=== PATIENT | male | born 1955 | race Caucasian/White ===

== ENCOUNTER 2016-07-22 05:17 | Emergency (ER) | payer BC ==
[2016-07-22] MEDS ORDERED: NS 0.9% 1000 ML* 2,000 ML IV ONE (05:54)
[2016-07-22] MEDS ORDERED: Diphenoxylat/Atrop 2.5-0.025M* 1 TAB PO ONE (05:57)
[2016-07-22 06:23] LABS: Hematocrit 51 % (42-52); Hemoglobin 17.1 g/dl (14.0-18.0); Mean Corpuscular HGB Conc 34 g/dl (31-36); Mean Corpuscular Hemoglobin 33 pg (27-31); Mean Corpuscular Volume 97 fL (80-94); Mean Platelet Volume 7 um3 (7.4-10.4); Red Blood Count 5.21 10^6/ul (4.0-5.4); Red Cell Distribution Width 13 % (10.5-15); White Blood Count 9.1 10^3/ul (3.5-10.8)
[2016-07-22 06:52] LABS: Albumin 4.1 g/dL (3.2-5.2); Calcium 8.9 mg/dL (8.6-10.3); EGFR Non-African American 51.4 (>60); Globulin 3.5 g/dL (2-4); Potassium 3.6 mmol/L (3.5-5.0); Total Protein 7.6 g/dL (6.4-8.9)
[2016-07-22 06:54] LABS: Troponin I 0.01 ng/mL (<0.04)
--- NOTE | 2016-07-22 07:02 | ED ---
Marycarmen Cruz Alok, scribed for Rogerio Multani on 07/22/16 at 0614 . GI/ HPI - HPI Summary HPI Summary: 60 y/o male presents to the ED with diarrhea for the last 24 hours. Pt states he has had about 20 bouts since yesterday, having his last bout at 0400 this morning. Pt also notes "Gurgling". Pt denies eating anything unusual. Pt denies hematochezia. Pt denies CP, SOB, abd pain, or fever. Pt last had similar symptoms one week ago with diarrhea for a day before subsiding. PMHx includes HTN. - History of Current Complaint Chief Complaint: EDNauseaVomitDiarrh Time Seen by Provider: 07/22/16 05:41 Stated Complaint: DIARRHEA X24 HRS Hx Obtained From: Patient Onset/Duration: Started Hours Ago, Atraumatic, Still Present Timing: Constant Severity: Moderate Current Severity: Moderate Pain Intensity: 0 Associated Signs and Symptoms: Positive: Diarrhea, Other: - "Gurgling". Negative : SOB, abd pain. Negative: Blood w/Stool, Fever, Chest Pain Aggravating Factor(s): Nothing - Allergy/Home Medications Allergies/Adverse Reactions: Allergies Allergy/AdvReac Type Severity Reaction Status Date / Time No Known Allergies Allergy Verified 09/30/13 13:39 PMH/Surg Hx/FS Hx/Imm Hx Endocrine/Hematology History: Denies: Hx Diabetes Cardiovascular History: Reports: Hx Hypertension, Other Cardiovascular Problems/ Disorders - Afib Respiratory History: Reports: Hx Sleep Apnea GI History: Reports: Other GI Disorders - New dx of diverticulosis Musculoskeletal History: Reports: Other Musculoskeletal History - Bilat knee Sensory History: Reports: Hx Contacts or Glasses Opthamlomology History: Reports: Hx Contacts or Glasses - Surgical History Surgery Procedure, Year, and Place: APPENDECTOMY Infectious Disease History: Yes Infectious Disease History: Denies: Traveled Outside the [place] in Last 30 Days - Family History Known Family History: Negative: Diabetes - Social History Occupation: Employed Full-time Lives: With Family Alcohol Use: None Substance Use Type: Reports: None Smoking Status (MU): Never Smoked Tobacco Review of Systems Negative: Fever Negative: Chest Pain Negative: Shortness Of Breath Positive: Diarrhea. Negative: Abdominal Pain, Other - Hematochezia All Other Systems Reviewed And Are Negative: Yes Physical Exam Triage Information Reviewed: Yes Vital Signs On Initial Exam: Initial Vitals Temp Pulse Resp BP Pulse Ox 97.9 F 75 18 143/94 97 07/22/16 05:25 07/22/16 05:25 07/22/16 05:25 07/22/16 05:25 07/22/16 05:25 Vital Signs Reviewed: Yes Appearance: Positive: Well-Appearing, No Pain Distress Skin: Positive: Warm, Skin Color Reflects Adequate Perfusion, Dry Head/Face: Positive: Normal Head/Face Inspection Eyes: Positive: EOMI, SCARLETT ENT: Positive: Normal ENT inspection Neck: Positive: Supple, Nontender Respiratory/Lung Sounds: Positive: Clear to Auscultation, Breath Sounds Present Cardiovascular: Positive: RRR, Pulses are Symmetrical in both Upper and Lower Extremities Abdomen Description: Positive: Nontender, Soft Bowel Sounds: Positive: Present Musculoskeletal: Positive: Normal, Strength/ROM Intact Neurological: Positive: Normal, Sensory/Motor Intact, Alert, Oriented to Person Place, Time - Harriet Coma Scale Coma Scale Total: 15 Diagnostics - Vital Signs Vital Signs Temp Pulse Resp BP Pulse Ox 07/22/16 05:31 92 97 07/22/16 05:30 143/94 07/22/16 05:25 97.9 F 75 18 143/94 97 - Laboratory Lab Results: Lab Results 07/22/16 07/22/16 07/22/16 Range/Units 06:05 06:05 06:05 WBC 9.1 (3.5-10.8) 10^3/ul RBC 5.21 (4.0-5.4) 10^6/ul Hgb 17.1 (14.0-18.0) g/dl Hct 51 (42-52) % MCV 97 H (80-94) fL MCH 33 H (27-31) pg MCHC 34 (31-36) g/dl RDW 13 (10.5-15) % Plt Count 228 (150-450) 10^3/ul MPV 7 L (7.4-10.4) um3 Neut % (Auto) 55.5 (38-83) % Lymph % (Auto) 29.2 (25-47) % [place] % (Auto) 11.9 H (1-9) % Eos % (Auto) 2.9 (0-6) % Baso % (Auto) 0.5 (0-2) % Absolute Neuts (auto) 5.1 (1.5-7.7) 10^3/ul Absolute Lymphs (auto) 2.7 (1.0-4.8) 10^3/ul Absolute Monos (auto) 1.1 H (0-0.8) 10^3/ul Absolute Eos (auto) 0.3 (0-0.6) 10^3/ul Absolute Basos (auto) 0 (0-0.2) 10^3/ul Absolute Nucleated RBC 0.01 10^3/ul Nucleated RBC % 0.1 Sodium 136 (133-145) mmol/L Potassium 3.6 (3.5-5.0) mmol/L Chloride 106 (101-111) mmol/L Carbon Dioxide 21 L (22-32) mmol/L Anion Gap 9 (2-11) mmol/L BUN 21 (6-24) mg/dL Creatinine 1.40 H (0.67-1.17) mg/dL Est GFR ( Amer) 66.0 (>60) Est GFR (Non-Af Amer) 51.4 (>60) BUN/Creatinine Ratio 15.0 (8-20) Glucose 124 H (70-100) mg/dL Lactic Acid 1.5 (0.5-2.0) mmol/L Calcium 8.9 (8.6-10.3) mg/dL Total Bilirubin 1.00 (0.2-1.0) mg/dL AST 38 (13-39) U/L ALT 48 (7-52) U/L Alkaline Phosphatase 58 (34-104) U/L Troponin I 0.01 (<0.04) ng/mL Total Protein 7.6 (6.4-8.9) g/dL Albumin 4.1 (3.2-5.2) g/dL Globulin 3.5 (2-4) g/dL Albumin/Globulin Ratio 1.2 (1-3) Lipase 14 (11.0-82.0) U/L Result Diagrams: 07/22/16 06:05 07/22/16 06:05 Lab Statement: Any lab studies that have been ordered have been reviewed, and results considered in the medical decision making process. - Radiology Abd XRAY Xray Interpretation: Positive (See Comments) - Non-specific bowel pattern Radiology Interpretation Completed By: ED Physician - Dr. Rangel CARVALHO Course/Dx - Course Course Of Treatment: Pt to be signed out to Dr. De Jesus at shift change - Diagnoses Provider Diagnoses: Diarrhea Discharge - Discharge Plan Condition: Stable Disposition: OTHER Discharge Disposition Comment: signed out to Dr De Jesus The documentation as recorded by the Marycarmen pozo Alok accurately reflects the service I personally performed and the decisions made by Rangel deluca Emmanuel.
--- NOTE | 2016-07-22 08:04 | RAD ---
INDICATION: Abdominal pain and diarrhea COMPARISON: CT abdomen pelvis September 30, 2013 TECHNIQUE: 2 views the abdomen were obtained. FINDINGS: There are no acute bony or soft tissue abnormalities. Air-filled loops of colon measure up to 6.3 cm at the transverse colon and approximately 9.7 cm at the base of the cecum. There is a relative paucity of stool and gas seen overlying the more distal colon and rectum. There is no definite evidence of free intraperitoneal gas, though does not appear upright images were obtained. There are no obvious coarse calcifications overlying the expected location of the bilateral collecting systems or ureters. IMPRESSION: DILATED LOOPS OF AIR-FILLED PROXIMAL COLON COULD BE THE CONSEQUENCE OF OBSTRUCTION OR OTHER PATHOLOGIC PROCESS IN THE MORE DISTAL COLON.
[2016-07-22 08:37] LABS: Urine Bacteria Absent (Absent); Urine Bilirubin Negative (Negative); Urine Glucose Negative (Negative); Urine Nitrite Negative (Negative)
[2016-07-22 10:51] VITALS: BP 157/93
== END 2016-07-22 11:17 | disposition home or self-care (01) ==
LOC: ED 05:17
DX: R19.7 Diarrhea, unspecified (principal); I10 Essential (primary) hypertension; I48.91 Unspecified atrial fibrillation; K57.90 Diverticulosis of intestine, part unspecified, without perforation or abscess without bleeding
CPT/HCPCS: 36415; 74000; 80053; 81003; 81015; 83605; 83630; 83690; 84484; 85025; 87045; 87046; 87077; 87177; 87209; 87328; 87329; 87899; 96360; 99283; A9270-GY